=== PATIENT | male | born 1955 | race Caucasian/White ===

== ENCOUNTER 2024-09-20 14:30 | Outpatient (AMB) | payer MEDICARE, OTHER, SELFPAY ==
--- NOTE | 2024-09-20 14:32 | MHC.OFFWIV ---
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, unable to sleep, after COVID + Patient Tobacco Use Status: Never used Tobacco Accompanied by: Self / Same As Patient Allergies shrimp Allergy (Unknown, Verified 09/20/24 14:33) SWELLING Medication List - Last Reconciled 09/20/24 by Sayra Mclaughlin, DERMATOLOGIST MANAGING PARTNER- atorvastatin 10 mg PO DAILY fluticasone propionate 50 mcg/actuation sprays intranasal montelukast 10 mg PO DAILY Do you need a note to return to daycare/school/sports/work: Yes HPI HPI Comments History of Present Illness Details History - The patient is a 68-year-old male presenting with Anxiety and Insomnia - He has experienced worsening anxiety since will COVID-19, characterized by racing thoughts and difficulty managing his mental state, which is most prevalent at night. - Anxiety began during his 30s after a false positive blood pressure reading, which led to repeated unnecessary medical checks. - He has utilized THC gummies for anxiety alleviation but finds them only temporarily effective. - [id number], the patient's anxiety is compounded by physical symptoms like shortness of breath during activities, which he associates with his mental state. - He reports insomnia tied to his anxieties about going to bed, failed sleep apnea attempts in the past, and nasal obstruction stemming from a past septum operation. - Experiencing agitative states but relieved marginally by daytime activity; nonetheless, unable to remain constantly busy. - The patient?s wheeziness, mostly following nighttime rest, is sometimes treatable with self-medicated dkae-oqi-nfhsrbw remedies. - An increased sense of breathlessness correlates with heightened diurnal anxiety, while mourning recent personal losses may exacerbate these emotional disorders. Physical Exam General: Awake, alert. No apparent distress Eyes: Sclera and conjunctiva clear bilaterally Cardiovascular: Regular rate and rhythm Respiratory: Clear to auscultation bilaterally. Neuro: Nonfocal Psych: Pleasant, cooperative, present Results Discussion Notes I discussed with the patient the management of his anxiety and insomnia, emphasizing the importance of achieving restorative sleep for recovery and health maintenance. I recommended hydroxyzine, which offers potential benefit for both anxiety and sleep disturbances. I detailed that hydroxyzine, at a 25 mg dosage, can be tailored to his needs: 1/2 to 2 tablets as needed, up to three times daily. Emphasis was given to start with a lower dose at bedtime to monitor its effect and to avoid daytime sedation, aiming to alleviate system overactivity. Given the patient's dislike of being dismissed in past healthcare experiences, I reassured him that continued support and follow-up would be available, advising a re-evaluation in a week to adjust treatment as needed. Furthermore, I provided reassurance about his normal heart and lung assessments during the examination. Patient Instructions - Start hydroxyzine as directed: 1/2 to 2 tablets up to three times a day, being cautious of its sedative effects, especially during daytime activities. - Consider elevating your head while sleeping and using a cool-mist humidifier to potentially help with nasal congestion. - Continue using Mucinex as needed for wheezing and post-nasal drip. - Follow up in one week to assess the effectiveness of treatment and make necessary adjustments. - Notify us if symptoms significantly worsen or for any new concerns. Consent Patient was informed and verbally consented to the use of an ambient scribe for clinic note documentation during this visit. [facility] Social History Patient Tobacco Use Status: Never used Tobacco Physical Exam Vital Signs: Last Vital Signs Temp 98.1 F 09/20/24 14:34 Pulse 90 09/20/24 14:34 BP 130/80 09/20/24 14:34 Pulse Ox 97 09/20/24 14:34 Oxygen Delivery Method Room Air 09/20/24 14:34 BMI result Body Mass Index 33.5 Assessment & Plan Assessment & Plan (1) Anxiety about health: Code(s): R45.89 - Other symptoms and signs involving emotional state (2) History of COVID-19: Code(s): Z86.16 - Personal history of COVID-19 Plan . Medications: New hydroxyzine HCl Take 1-2 tabs three times per day as needed for anxiety or insomnia 25 mg PO TID PRN 60 tabs 0RF insomnia or anxiety NS Patient Instructions: - Start hydroxyzine as directed: 1/2 to 2 tablets up to three times a day, being cautious of its sedative effects, especially during daytime activities. - Consider elevating your head while sleeping and using a cool-mist humidifier to potentially help with congestion, cough and wheezing - Continue using Mucinex as needed for wheezing and post-nasal drip. - Follow up in one week to assess the effectiveness of treatment and make necessary adjustments. - Notify us if symptoms significantly worsen or for any new concerns. Coding Level of Care Code Est Pt Level 3 (50858) Diagnoses Anxiety about health R45.89 History of COVID-19 Z86.16
--- OUTSIDE RECORDS SUMMARY | 2024-09-20 14:32 | XMS_ITS | Clinical Summary ---
Author Organization [facility] [address] [place] [address] Address [address] [facility] [place] Rodriges [address] Phone Care Team Providers Care Finisher Cold Rolling Name Role Phone Lashell Alfaro MD Primary Care Provider [phone] Allergies Active Allergy Reactions Criticality Noted Date Comments Dog Dander 09/30/2021 Grass Pollen 09/30/2021 House Dust Mite 09/30/2021 Mold 09/30/2021 Pollen Extracts 09/30/2021 Shellfish Derived Shortness of breath,Wheezing High 04/18/2005 Medications montelukast (SINGULAIR) 10 mg tablet TAKE 1 TABLET BY MOUTH EVERYDAY AT BEDTIME 90 tablet 1 4 Active multivitamin/ir on/folic acid (CENTRUM ORAL) 1 tab daily Act keyana cetirizine HCl (ZYRTEC ORAL) Take by mouth. A ctive olive oil external oil 1 tablespoon nightly 2 Active omega 7-djj-wgn-fish oil 360 mg-108 mg- 180 mg-1,200 mg capsule Take 3 capsules by mouth 1 (one) time each day. Active omeprazole (PriLOSEC) [address] capsule Take 1 capsule (20 mg total) by mouth 1 (one) time each day. Active aspirin 81 mg EC tablet 1 TABLET DAILY Activ e TURMERIC ORAL Take by mouth 1 (one) time each day. Active atorvastatin (LIPITOR) 10 mg tablet TAKE 1 TABLET BY MOUTH EVERY DAY 90 tablet 2 4 Active fluticasone propionate (FLONASE) 50 mcg/actuation nasal spray SPRAY 2 SPRAYS BY NASAL ROUTE DAILY 48 mL 1 5 Active Active Problems Problem Noted Date Diagnosed Date Hydronephrosis, right 10/24/2015 Elevated blood pressure reading 10/22/2015 Assessment & Plan (07/23/2024 12:30 PM EST): Orders: Comprehensive metabolic panel; Future Nephrolithiasis 10/22/2015 Overview (05/19/2024): Follows with urology, Assessment & Plan (07/23/2024 12:30 PM EST): Ankle injury 06/29/2015 MORENO (obstructive sleep apnea) 10/11/2011 Overview (05/19/2024): Pt prefers to use adjustable bed, helps. Assessment & Plan (07/23/2024 12:30 PM EST): Orders: Ambulatory referral to ENT; Future GERD (gastroesophageal reflux disease) 1 Obesity 03/21/2011 Assessment & Plan (07/23/2024 12:30 PM EST): Orders: Comprehensive metabolic panel; Future Asthma 10/11/2009 Hyperlipidemia 06/19/2009 Assessment & Plan (07/23/2024 12:30 PM EST): Orders: Lipid panel with reflex to direct LDL; Future Comprehensive metabolic panel; Future Urticaria 06/17/2009 Meniere's disease 06/05/2008 Hearing loss 05/15/2005 Overview (05/19/2024): Dr Anthony CORTEZ update Encounters Date Type Department Care Team Description 09/11/2024 3:30 PM EDT Office Visit Adult Medicine [address] [address] Lashell Alfaro MD COVID-19 virus infection (Primary Dx); Cough, unspecified type 09/11/2024 Telephone Adult Medicine West [address] [address] Lashell Alfaro MD Covid 08/20/2024 Telephone Adult Medicine [address] [address] Lashell Alfaro MD Cough; Generalized Body Aches; Headache 07/23/2024 11:15 AM EST Office Visit Adult Medicine [address] [address] Lashell Alfaro MD Viral upper respiratory tract infection (Primary Dx); Allergic rhinitis, unspecified seasonality, unspecified trigger; Elevated blood pressure reading; MORENO (obstructive sleep apnea); Class 2 severe obesity due to excess calories with serious comorbidity in adult, unspecified BMI (CMS/HCC); Nephrolithiasis; Hyperlipidemia, unspecified hyperlipidemia type; Routine general medical examination at a [facility] 06/25/2024 Lab Requisition [facility] - Main Lab [address] [place] [phone] Pat Mahoney MD Benign prostatic hyperplasia with lower urinary tract symptoms from Last 3 Months Immunizations Name Administration Dates Next Due H1N1 Inj Preservative Free 06/17/2009 Influenza Quadravalent, MDCK , 0.5ml, preservative free (Flucelvax) 6mo and older 03/22/2019,03/21/2018 Influenza Quadravalent, MDCK , 0.5ml, with preservative (Flucelvax) 6mo and older 03/15/2021,03/07/2020 Influenza trivalent, 0.5mL ( Fluad) 65yo and older 03/03/2023,04/07/2022 Influenza trivalent, 0.5mL, preservative free (Fluarix; FluLaval; Fluzone) ages 6mo and older (Afluria) 3 years and older 03/22/2019,03/10/2014,02/22/2012,06/05,03/19/2007 Influenza trivalent, with pr eservative (Fluzone; Afluria) 6mo and older 03/27/2017,04/07/2016,04/15/2013,05/22,03/21/2011,06/17/2009 Influenza, Unspecified 03/07/2020,03/21/2018, Pfizer (ages 12 & older) Biv alent, COVID-19 11/24/2022,04/06/2022 Pfizer SARS-CoV-2 COVID-19, mRNA, LNP-S, preservative free 09/22/2021,03/29/2021 Pneumococcal conjugate 20 va lent (Prevnar 20, PCV 20) 2mo and older 07/24/2023 Pneumococcal polysaccharide 23 valent (Pneumovax 23) 2yo and older 10/13/2013 Respiratory syncytial virus (RSV), unspecified 03/07/2023 Td Tetanus diptheria (Tdvax) 7yo and older 05/15/2005 Tdap Tetanus diptheria acell ular pertussis (Boostrix; Adacel) 7yo and older 06/17/2024,08/13/2012 Zoster Live 03/21/2018,01/17/2018 Zoster recombinant (Shingrix ) 19yo and older 03/21/2018,01/17/2018 Surgical History Surgery Date Site/Laterality Comments COLONOSCOPY 01/14/2008 PROCEDURE: HISTORICAL COLONOSCOPY; COMMENT: diverticulosis OTHER SURGICAL HISTORY PROCEDURE: ---- OTHER ----; COMMENT: deviated septum, vocal cord polyps OTHER SURGICAL HISTORY PROCEDURE: ---- OTHER ----; COMMENT: fx collorbone,. finger surgery ORTHOPEDIC SURGERY Right PROCEDURE: HISTORICAL ORTHOPEDIC SURGERY; COMMENT: Right foot compound fracture Medical History Medical History Date Comments Unspecified hearing loss 05/15/2005 DX:Unsp ecified hearing loss Meniere's disease 06/05/2008 DX:Meniere's d isease Urticaria 06/17/2009 DX:Urticaria MORENO (obstructive sleep apnea) 10/11/2011 DX :MORENO (obstructive sleep apnea) Hyperlipidemia 06/19/2009 DX:Hyperlipidemi a Hydronephrosis DX:Hydronephrosi s Obesity DX:Obesity Elevated blood pressure DX:[place] blood pressure Nephrolithiasis 10/22/2015 DX:Nephrolithias is; COMMENT: Follows with urology, Family history of pancreatic cancer 11/04/2018 DX:Family history of pancreatic cancer Family History Medical History Relation Name Comments Other: pancreatic cancer, stage 3/4 at age 63 Brother 1 Other cancer Brother 2 skin bcc Heart attack Father age 69 Arthritis Mother Heart failure Mother Arthritis Sister 1 Relation Name Status Comments Brother 1 Alive Brother 2 Father (Age 69) mi, htn, c abg age 63 Mother (Age 77) hip fx, ra Sister 1 Sister 2 Alive ra Sister 3 Alive Sister 4 Alive Social History Tobacco Use Types Packs/Day Years Used Date Smoking Tobacco: Former Cigarettes Q uit: 06/18/1972 Smokeless Tobacco: Never Tobacco Cessation:Counseling Given: Not Answered Alcohol Use Standard Drinks/Week Comments Yes 8.3 (1 standard drink = 0.6 oz p ure alcohol) Sex and Gender Information Value Date Recorded Sex Assigned at Not on file Legal Sex Male 9:10 PM EST Gender Identity Not on file Sexual Orientation Not on file Obstetrics History Last Filed Vital Signs Vital Sign Reading Time Taken Comments Blood Pressure 128/78 09/11/2024 3:49 PM EDT Pulse 72 09/11/2024 3:49 PM EDT Temperature 36.6 ??C (97.9 ??F) 09/11/2024 3:49 PM ED T Respiratory Rate 22 09/11/2024 3:49 PM EDT Oxygen Saturation 96% 09/11/2024 3:49 PM EDT Inhaled Oxygen Concentration - - Weight 111 kg (244 lb) 09/11/2024 3:49 PM EDT Height 180.3 cm (5' 11 ) 09/11/2024 3:49 PM EDT Body Mass Index 34.03 09/11/2024 3:49 PM EDT Plan of Treatment Upcoming Encounters Date Type Department Care Team (Late st Contact Info) Description 02/04/2025 8:45 AM EDT Office Visit Adult Medicine [address] [phone] Lashell Alfaro MD [address] [place] [address] Health Maintenance Due Date Last Done Comments RSV Immunization Adult Patients (1 - Risk 60-74 years 1-dose series) 2016 03/07/2023 Zoster Vaccines (3 of 3) 05/16/2018 018, 03/21/2018, 01/17/2018, Additional history exists Social Influencers of Health Screening 05/27/2022 Depression Screening 07/24/2024 07/24/2023 Falls Risk Assessment 07/23/2025 07/23/2024, 024 Medicare Annual Wellness Visit 07/23/2025 07/23/2024 Cholesterol Screening (Lipid Panel) 03/23/2028 03/23/2023 Colorectal Cancer Screening: Colonoscopy 04/12/2031 04/12/2021 DTaP,Tdap,and Td Vaccines (4 - Td or Tdap) 06/17/2034 06/17/2024, 08/13/2012, 05/15/2005 Hepatitis C Screening Completed 10/13/2013 RSV Immunization Patients Under 20 months Aged Out 03/07/2023 No longer eligible based on patient's age to complete this topic Pneumococcal Vaccine: 50+ Years Completed 07/24/2023, 10/13/2013 Abdominal Aortic Aneurysm (AAA) Screen Completed 12/03/2023 COVID-19 Vaccine Completed 03/05/2024, 08/2023, 03/27/2023, Additional history exists Influenza Vaccine Completed 03/21/2024, , 04/07/2022, Additional history exists HIB Vaccines Aged Out No longer eligi ble based on patient's age to complete this topic HPV Vaccines Aged Out No longer eligi ble based on patient's age to complete this topic Hepatitis A Vaccines Aged Out No long er eligible based on patient's age to complete this topic Hepatitis B Vaccines Aged Out No long er eligible based on patient's age to complete this topic IPV Vaccines Aged Out No longer eligi ble based on patient's age to complete this topic MMR Vaccines Aged Out No longer eligi ble based on patient's age to complete this topic Meningococcal ACWY Vaccine Aged Out N o longer eligible based on patient's age to complete this topic Meningococcal B Vacine Aged Out No lo nger eligible based on patient's age to complete this topic Varicella Vaccines Aged Out No longer eligible based on patient's age to complete this topic Procedures Procedure Name Priority Date/Time Associated Diagnosis Comments PROSTATE SPECIFIC ANTIGEN DIAGNOSTIC Routine 06/25/2024 10:26 AM EST Benign prostatic hyperplasia with lower urinary tract symptoms HM ABDOMINAL AORTIC ANEURYSM SCRREN Routine 12/03/2023 DEPRESSION SCREENING Routine 07/24/2023 FALLS RISK ASSESSMENT Routine 07/24/2023 LIPID PANEL Routine 03/23/2023 COLONOSCOPY Routine 04/12/2021 HEPATITIS C SCREENING Routine 10/13/2013 from Last 3 Months or Most Recently Relevant to Health Maintenance Results * Prostate specific antigen diagnostic (06/25/2024 10:26 AM EST) PSA 1.73 0.00 - 4.00 ng/mL LAB CHEMISTRY METHOD 06/25/2024 6:41 PM EST [facility] Blood Venous blood specimen / Unknown 06/25/2024 10:26 AM EST 06/25/2024 6:05 PM EST Narrative [facility] - 06/25/2024 6:41 PM EST The Siemens Advia Centaur Chemiluminescent Immunoassay is used. Results obtained with different assay methods or kits cannot be used interchangeably. Results cannot be interpreted as absolute evidence of the presence or absence of malignant disease. Pat Mahoney MD LAB BLOOD ORDERABLES Fin al Result [facility] [address] [place] [address], * Abdominal Aortic Aneurysm Screen (12/03/2023) Abdominal Aortic Aneurysm (AAA) Screening abstracted Anatomical Region Laterality Modality Other Historical Provider HEALTH MAINTENANCE Final Result * Falls Risk Assessment (07/24/2023) Falls Risk Assessment abstracted Historical Provider HEALTH MAINTENANCE Final Result * Depression Screening (07/24/2023) [facility] Depression Screening abstracted [facility] Provider HEALTH MAINTENANCE Final Result * (ABNORMAL) Lipid panel (03/23/2023) [facility] LDL/HDL Ratio 4 0 - 4 Triglycerides 89 0 - 150 mg/dL Cholesterol 146 0 - 200 mg/dL HDL 38(A) >=40 mg/dL LDL Cholesterol 91 0 - 100 mg/dL Blood Venous blood specimen / Unknown [facility] Provider LAB BLOOD ORDERABLES Angelique l Result * Colonoscopy (04/12/2021) [facility] Colonoscopy no interpretation , abstracted Anatomical Region Laterality Modality Other [facility] Provider HEALTH MAINTENANCE Final Result * Hepatitis C Screening (10/13/2013) [facility] Hepatitis C Screening abstracted [facility] Provider HEALTH MAINTENANCE Final Result from Last 3 Months or Most Recently Relevant to Health Maintenance Insurance MEDICARE [facility] [address] [place] [address] Care Teams Finisher Cold Rolling Relationship Specialty Start Date End Date Lashell Alfaro MD [address] [place] [id number] PCP - General Internal Medicine 06/18/20
--- OUTSIDE RECORDS SUMMARY | 2024-09-20 14:32 | XMS_ITS | Encounter Summary ---
Author Organization [facility] Address [address] [place] [address] Care Team Providers Care Nurse Liaison Name Role Phone Lashell Alfaro MD Primary Care Provider [phone] Encounter Details Date Type Department Care Team (Late Contact Info) Description 06/25/2024 Lab Requisition [facility] - Main Lab [address] [facility] [place] [address] Pat Mahoney MD [address] [facility] [address] [place] [address] Benign prostatic hyperplasia with lower urinary tract symptoms Social History Tobacco Use Types Packs/Day Years Used Date Smoking Tobacco: Former Cigarettes Q uit: 06/18/1972 Smokeless Tobacco: Never Alcohol Use Standard Drinks/Week Comments Yes 8.3 (1 standard drink = 0.6 oz p ure alcohol) Sex and Gender Information Value Date Recorded Sex Assigned at Not on file Legal Sex Male 9:10 PM EST Gender Identity Not on file Sexual Orientation Not on file documented as of this encounter Plan of Treatment Upcoming Encounters Date Type Department Care Team (Late Contact Info) Description 02/04/2025 8:45 AM EDT Office Visit Adult Medicine [address] [phone] Lashell Alfaro MD [address] [place] [address] documented as of this encounter Procedures Procedure Name Priority Date/Time Associated Diagnosis Comments PROSTATE SPECIFIC ANTIGEN DIAGNOSTIC Routine 06/25/2024 10:26 AM EST Benign prostatic hyperplasia with lower urinary tract symptoms documented in this encounter Results * Prostate specific antigen diagnostic (06/25/2024 10:26 AM EST) PSA 1.73 0.00 - 4.00 ng/mL LAB CHEMISTRY METHOD 06/25/2024 6:41 PM EST [facility] Blood Venous blood specimen / Unknown 06/25/2024 10:26 AM EST 06/25/2024 6:05 PM EST Narrative [facility] - 06/25/2024 6:41 PM EST The Siemens Advia Genomedaur Chemiluminescent Immunoassay is used. Results obtained with different assay methods or kits cannot be used interchangeably. Results cannot be interpreted as absolute evidence of the presence or absence of malignant disease. us Pat Mahoney MD LAB BLOOD ORDERABLES Fin al Result [facility] [address] [place] [address], documented in this encounter Visit Diagnoses Diagnosis Benign prostatic hyperplasia with lower urinary tract symptoms documented in this encounter Care Teams Nurse Liaison Relationship Specialty Start Date End Date Lashell Alfaro MD [address] [place] [address] PCP - General Internal Medicine 06/18/20 documented as of this encounter
--- OUTSIDE RECORDS SUMMARY | 2024-09-20 14:32 | XMS_ITS | Clinical Summary ---
Author Organization [facility] Address [address] [place] [address] Care Team Providers Care Oceanic Sciences Professor Name Role Phone Lashell Alfaro MD Primary Care Provider [phone] Social History Tobacco Use Types Packs/Day Years Used Date Smoking Tobacco: Never Assessed Sex and Gender Information Value Date Recorded Sex Assigned at Not on file Gender Identity Not on file Sexual Orientation Not on file Job Start Date Occupation Industry Not on file Not on file Not on file Plan of Treatment Health Maintenance Due Date Last Done Comments Hepatitis C Screening 1955 COVID-19 Vaccine (#1) 06/22/1957 Depression Screening 1968 Preventative Health Evaluation 1974 DTap / Tdap / Td (1 - Tdap) 12/21/1975 Colon Cancer Screening (Colonoscopy) 2001 Shingrix-Zoster Vaccine (1 of 2) 2006 Fall Risk Assessment 2021 Pneumococcal Vaccine (1 of 1 - PCV) 2021 Influenza Vaccine (#1) 2024 RSV Adult > 60+ Yrs or Pregn ant (1 - 1-dose 75+ series) 12/21/2031 Hepatitis B Vaccines Aged Out No long er eligible based on patient's age to complete this topic RSV Ped < 20 months Aged Out No longe r eligible based on patient's age to complete this topic Care Teams Oceanic Sciences Professor Relationship Specialty Start Date End Date Lashell Alfaro MD PCP - General Internal Medicine 06/18/20
--- OUTSIDE RECORDS SUMMARY | 2024-09-20 14:32 | XMS_ITS | Encounter Summary ---
Author Organization [facility] Address [address] [place] [address] Care Team Providers Care Package Sorter Name Role Phone Lashell Alfaro MD Primary Care Provider [phone] Reason for Visit * Reason Onset Date Comments Cough 05/19/2024 Encounter Details Date Type Department Care Team (Late st Contact Info) Description 05/19/2024 Nurse Triage Adult Medicine [facility] [address] [place] [address] Lashell Alfaro MD [address] [place] [address] Cough Social History Tobacco Use Types Packs/Day Years [...] on file documented as of this encounter Progress Notes * Zoya Vicente RN - 05/20/2024 12:26 PM EST Answer Assessment - Initial Assessment Questions 1. ONSET: When did the cough begin? A week 2. SEVERITY: How bad is the cough today? Persistent 3. SPUTUM: Describe the color of your sputum (e.g., none, dry cough; clear, white, yellow, green) Thick green 4. HEMOPTYSIS: Are you coughing up any blood? If Yes, ask: How much? (e.g., flecks, streaks, tablespoons, etc.) none 5. DIFFICULTY BREATHING: Are you having difficulty breathing? If Yes, ask: How bad is it? (e.g., mild, moderate, severe) - MILD: No SOB at rest, mild SOB with walking, speaks normally in sentences, can lie down, no retractions, pulse < 100. - MODERATE: SOB at rest, SOB with minimal exertion and prefers to sit, cannot lie down flat, speaksin phrases, mild retractions, audible wheezing, pulse 100-120. - SEVERE: Very SOB at rest, speaks in single words, struggling to breathe, sitting hunched forward,retractions, pulse > 120. Mild 6. FEVER: Do you have a fever? If Yes, ask: What is your temperature, how was it measured, and when did it start? none 7. CARDIAC HISTORY: Do you have any history of heart disease? (e.g., heart attack, congestive heart failure) none 8. LUNG HISTORY: Do you have any history of lung disease? (e.g., pulmonary embolus, asthma, emphysema) COPD take Flonase and Singulair 9. PE RISK FACTORS: Do you have a history of blood clots? (or: recent major surgery, recent prolonged travel, bedridden) none 10. OTHER SYMPTOMS: Do you have any other symptoms? (e.g., runny nose, wheezing, chest pain) C/O chest wall pain with deep breath and cough, denies SOB, able to speak in full sentences and hasno audible wheezing, using inhaler as directed with relief, cough is productive for thick Sputum, denies fever (has not taken temp) able to take PO with no difficulty, denies N/V/D, Covid negative 11. : Is there any chance you are ? When was your last menstrual period? N/A 12. TRAVEL: Have you traveled out of the country in the last month? (e.g., travel history, exposures) 1 mo ago Protocols used: Cough - Acute Jazhtjbzly-L-LQ * Raisa Mccallum - 05/20/2024 11:50 AM EST Pt called back. Pls return call. [phone] * PETERSON El katheryn - 05/19/2024 2:44 PM EST Patient call requires triage: Symptoms patient is presenting: coughing, a lot of mucus, light headed, pt can't sleep, stuffy nosept did take a covid test and it was negitive How long has patient had these symptoms?: just over a week For ALL patients calling to schedule any appointment (routine, sick visit, follow up, consult, etc.) in the outpatient setting please ask the following questions: Do you have fever of higher than 101, sore throat with difficulty swallowing or severe shortness ofbreath? Yes swallowing and shortness of breath If YES to any of these above symptoms, send a message to triage and do not book. Red dot. If no, an audio or video visit should be booked. Have you had close contact with someone with Coronavirus in the last 14 days? no Have you traveled abroad? no Have you traveled recently to another state outside of [place], [place], [place], [place], [place], [place], [place]? no o If yes, did you quarantine for 14 days or have a negative covid test? no If yes to any of the above, patient is not to be scheduled in office until after 14 day quarantine or negative covid test. If pain or injury related was it due to an accident at work or from a motor vehicle accident? If yes, date of accident/Injury: No If yes, gather 3rd republican insurance information Third Green Party Information: not applicable PCP: Lashell Alfaro MD Payor: / No coverage found. documented in this encounter Plan of Treatment Upcoming Encounters Date Type Department Care Team (Late st Contact Info) Description 02/04/2025 8:45 AM EDT Office Visit Adult Medicine [address] [phone] Lashell Alfaro MD [address] [place] [id number] documented as of this encounter Visit Diagnoses Not on filedocumented in this encounter Care Teams Package Sorter Relationship Specialty Start Date End Date Lashell Alfaro MD [address] [place] [address] PCP - General Internal Medicine 06/18/20 documented as of this encounter
[2024-09-20 14:34] VITALS: BP 130/80; PULSE 90; TEMP 36.7; O2SAT 97; BMI 33.5
== END 2024-09-20 14:58 | disposition home or self-care (01) ==
LOC: HO.HMCWIC 14:30
PROVIDERS: PCP Internal Medicine; Visit Provider Nurse Practitioner Family
DX: R45.89 Other symptoms and signs involving emotional state (principal); Z86.16 Personal history of COVID-19

== ENCOUNTER → 2024-09-20 14:30 | Outpatient (BNVA) | payer MEDICARE, OTHER, SELFPAY | PROVIDERS: PCP Internal Medicine; Visit Provider Nurse Practitioner Family | DX: R45.89 Other symptoms and signs involving emotional state (principal); Z86.16 Personal history of COVID-19 | CPT/HCPCS: 99212 ==

== ENCOUNTER 2024-09-30 13:38 | Outpatient (AMB) | payer MEDICARE, OTHER, SELFPAY ==
[2024-09-30 13:43] VITALS: BP 140/90; PULSE 78; O2SAT 98
--- NOTE | 2024-09-30 13:43 | AM.OFFWIN_ITS ---
Intake Vital Signs 09/30/24 13:43 Weight 241 lb BP 140/90 H Blood Pressure Location Rt brachial Position Sitting Pulse 78 Pulse Source Pulse Oximeter Pulse Oximetry (%) 98 Oxygen Delivery Method Room Air Intake Visit Reasons: EP Anxiety Intake Note: Patient here for anxiety, loosing sleep Patient Tobacco Use Status: Never used Tobacco Allergies shrimp Allergy (Unknown, Verified 09/30/24 13:44) SWELLING Do you need a note to return to daycare/school/sports/work: No HPI HPI Comments History of Present Illness Details This is a 68-year-old male with a past medical history of seasonal allergies and asthma presenting for re-evaluation of his anxiety. Patient states he was diagnosed with COVID in August 2024 and started to have racing thoughts and anxiety at that time. Patient was seen in the walk-in on September 20 and prescribed hydroxyzine which he states has been very helpful for his anxiety. Patient's primary care provider is through [facility] and the patient is concerned that his PCP has not been taking his concerns seriously, which is why he returns to the walk.in. Patient has no physical complaints at this time and denies any suicidality or homicidality. PFSH Social History Patient Tobacco Use Status: Never used Tobacco Review of Systems Const All systems reviewed & are unremarkable except as noted in HPI and below Reports no additional complaints and Reports other (anxious) Eyes Reports no additional complaints ENT Reports no additional complaints Card Reports no additional complaints Resp Reports no additional complaints GI Reports no additional complaints Reports no additional complaints Musc Reports no additional complaints Skin/Breast Reports system reviewed and no additional complaints, except as documented Neuro Reports no additional complaints and Denies memory loss Psych Reports anxiety, Denies memory loss, Denies panic attacks, Denies homicidal ideation and Reports other ( racing thoughts ) Endo Reports no additional complaints Deejay/Lymph Reports no additional complaints Aller/Immun Reports no additional complaints Physical Exam Vital Signs: Last Vital Signs Pulse 78 09/30/24 13:43 BP 140/90 H 09/30/24 13:43 Pulse Ox 98 09/30/24 13:43 Oxygen Delivery Method Room Air 09/30/24 13:43 Const General: cooperative, healthy appearing, comfortable, no acute distress, well developed, alert and awake Nutritional Appearance: well nourished Orientation/consciousness: patient oriented x3 Limitations: no limitations Resp Effort & Inspection: normal respiratory effort and able to speak in complete sentences Auscultation: clear to auscultation bilaterally Cardio Rate: regular rate Rhythm: regular rhythm Neuro General: patient oriented x3 Psych Appearance: grossly normal Mental Status: mental status grossly normal Speech and movement: Normal speech and movement present Affect: normal affect Attitude: cooperative Thought process: Normal thought process present Thought content: Normal thought content present, suicidality and no homicidality Insight: Good insight present (Psych) Judgement: Good judgement present (Psych) Assessment & Plan Assessment & Plan (1) Anxiety about health: Comment: We have discussed the nature of anti.anxiety medications as related to joint terminal attack controller care. Hydroxyzine will be re.prescribed for a quantity of #20 tabs. Patient has met with the community navigator and has received a referral for the [facility] Walk.In to pursue therapy and/or medication management. He is encouraged to follow up with his primary care provider as an outpatient for ongoing management. Patient is aware that he may not continue to return to the walk-in for ongoing hydroxyzine prescriptions. Code(s): R45.89 - Other symptoms and signs involving emotional state Plan: Hydroxyzine will be represcribed and the patient will be referred to the [facility] walk-in. Medications: New hydroxyzine HCl 25 mg PO QID PRN 20 tabs 0RF anxiety Coding Level of Care Code Est Pt Level 3 (22681) Diagnoses Anxiety about health R45.89 Time Spent (min) 30
--- OUTSIDE RECORDS SUMMARY | 2024-09-30 16:43 | XMS_ITS | Clinical Summary ---
Author Organization [facility] Address [address] [place] [address] Care Team Providers Care All Around Gear Machine Operator Name Role Phone Lashell Alfaro MD Primary Care Provider [phone] Social History Tobacco Use Types Packs/Day Years [...] age to complete this topic Care Teams All Around Gear Machine Operator Relationship Specialty Start Date End Date Lashell Alfaro MD PCP - General Internal Medicine 06/18/20
--- OUTSIDE RECORDS SUMMARY | 2024-09-30 16:43 | XMS_ITS | Encounter Summary ---
Author Organization [facility] Address [address] [place] [address] Care Team Providers Care Hat Marker Name Role Phone Lashell Alfaro MD Primary Care Provider [phone] Reason for Visit * Reason Onset Date Comments Cough 05/19/2024 Encounter Details Date Type Department Care Team (Late st Contact Info) Description 05/19/2024 Nurse Triage Adult Medicine [facility] [address] [place] [address] Lashell Alfaro MD [address] [place] [address] Cough Social History Tobacco Use Types Packs/Day [...] mo ago Protocols used: Cough - Acute [id number]-C-BU * Raisa Mccallum - 05/20/2024 11:50 AM EST Pt called back. Pls return call. [phone] * PETERSON Deshawn campa - 05/19/2024 2:44 PM EST Patient call [...] traveled recently to another state outside of [place], [place], [place], [place], [place], [place], [place]? no o If yes, did you quarantine [...] of accident/Injury: No If yes, gather 3rd democrat insurance information [employer] Party Information: not applicable PCP: Lashell Alfaro MD Payor: / No coverage found. documented in this encounter Plan of Treatment Upcoming Encounters Date Type Department Care Team (Late st Contact Info) Description 10/07/2024 8:00 AM EDT Office Visit Adult Medicine [address] [phone] Maverick Fleming PA [address] [place] [address] 02/04/2025 8:45 AM EDT Office Visit Adult Medicine [facility] [address] [place] [address] Lashell Alfaro MD [address] [place], [place] documented as of this encounter Visit Diagnoses Not on filedocumented in this encounter Care Teams Hat Marker Relationship Specialty Start Date End Date Lashell Alfaro MD [address] [place], [place] PCP - General Internal Medicine 06/18/20 documented as of this encounter
--- OUTSIDE RECORDS SUMMARY | 2024-09-30 16:43 | XMS_ITS | Clinical Summary ---
Author Organization [facility] [address] [place] [address] Address [address] [facility] [place] Rodriges [address] Phone Care Team Providers Care Customer Service Assistant Name Role Phone Lashell Alafro MD Primary Care Provider [phone] Allergies Active Allergy Reactions Criticality Noted Date [...] oil 1 tablespoon nightly 2 Active omega 2-zug-aci-fish oil 360 mg-108 mg- 180 mg-1,200 mg [...] 3:30 PM EDT Office Visit Adult Medicine [address] [phone] Lashell Alfaro MD COVID-19 virus infection (Primary Dx); Cough, unspecified type 09/11/2024 Telephone Adult Medicine [place] [address] [phone] Lashell Alfaro MD Covid 08/20/2024 Telephone Adult Medicine [address] [phone] Lashell Alfaro MD Cough; Generalized Body Aches; Headache 07/23/2024 11:15 AM EST Office Visit Adult Medicine [address] [phone] Lashell Alfaro MD Viral upper respiratory tract infection (Primary Dx); Allergic rhinitis, unspecified seasonality, unspecified trigger; Elevated blood pressure reading; MORENO (obstructive sleep apnea); Class 2 severe obesity due to excess calories with serious comorbidity in adult, unspecified BMI (CMS/[facility] V24, [facility] V28); Nephrolithiasis; Hyperlipidemia, unspecified hyperlipidemia type; Routine general medical examination at a health care facility from Last 3 Months Immunizations Name Administration [...] DX:Hydronephrosi s Obesity DX:Obesity Elevated blood pressure DX:Bowie cristiana blood pressure Nephrolithiasis 10/22/2015 DX:Nephrolithias is; [...] Description 10/07/2024 8:00 AM EDT Office Visit [address] [phone] Maverick Fleming PA [address] [place], [place] 02/04/2025 8:45 AM EDT Office Visit [address] [phone] Lashell Alfaro MD [address] [place], [place] Health Maintenance Due Date Last Done Comments RSV Immunization Adult Patients (1 - Risk 60-74 years 1-dose series) 2016 03/07/2023 Zoster Vaccines (3 of 3) 05/16/2018 018, 03/21/2018, 01/17/2018, Additional history exists Social Influencers of Health Screening 05/27/2022 Depression Screening 07/24/2024 07/24/2023 COVID-19 Vaccine ( season) 2024 03/05/2024, 11/19/2023, 03/27/2023, Additional history exists Falls Risk Assessment 07/23/2025 07/23/2024, 024 Medicare [...] Abdominal Aortic Aneurysm (AAA) Screen Completed 12/03/2023 Influenza Vaccine Completed 03/21/2024, , 04/07/2022, Additional [...] age to complete this topic Meningococcal B Vaccine Aged Out No l onger eligible based on patient's age to complete this topic Varicella Vaccines Aged Out No longer eligible based on patient's age to complete this topic Procedures Procedure Name Priority Date/Time Associated Diagnosis Comments ABDOMINAL AORTIC ANEURYSM SCRREN Routine 12/03/2023 DEPRESSION SCREENING Routine 07/24/2023 FALLS RISK ASSESSMENT Routine 07/24/2023 LIPID PANEL Routine 03/23/2023 COLONOSCOPY Routine 04/12/2021 HEPATITIS C SCREENING Routine 10/13/2013 from Last 3 Months or Most Recently Relevant to Health Maintenance Results * Abdominal Aortic Aneurysm Screen (12/03/2023) [facility] Abdominal Aortic Aneurysm (AAA) Screening abstracted Anatomical Region Laterality Modality Other [facility] HEALTH MAINTENANCE Final Result * Falls Risk Assessment (07/24/2023) [facility] Falls Risk Assessment abstracted [facility] HEALTH MAINTENANCE Final Result * Depression Screening (07/24/2023) [facility] Depression Screening abstracted [facility] HEALTH MAINTENANCE Final Result * (ABNORMAL) Lipid panel (03/23/2023) [facility] LDL/HDL Ratio 4 0 - 4 Triglycerides 89 0 - 150 mg/dL Cholesterol 146 0 - 200 mg/dL HDL 38(A) >=40 mg/dL LDL Cholesterol 91 0 - 100 mg/dL Blood Venous blood specimen / Unknown [facility] Provider LAB BLOOD ORDERABLES Angelique l Result * Colonoscopy (04/12/2021) [facility] Colonoscopy no interpretation , abstracted Anatomical Region Laterality Modality Other [facility] HEALTH MAINTENANCE Final Result * Hepatitis C Screening (10/13/2013) [facility] Hepatitis C Screening abstracted us Historical Provider HEALTH MAINTENANCE Final Result from Last 3 Months or Most Recently Relevant to Health Maintenance Insurance MEDICARE [facility] Care Teams Customer Service Assistant Relationship Specialty Start Date End Date Lashell Alfaro MD [address] [place] [address] PCP - General Internal Medicine 06/18/20
--- OUTSIDE RECORDS SUMMARY | 2024-09-30 16:43 | XMS_ITS | Encounter Summary ---
Author Organization [facility] Address [address] [place] [address] Care Team Providers Care Groover Runner Name Role Phone Lashell Alfaro MD Primary Care Provider [phone] Encounter Details Date Type Department Care Team (Late Contact Info) Description 06/25/[address] [facility] - Main Lab [address] [place] [address] Pat Mahoney MD [address] [facility] [address] [place] [address] Benign prostatic hyperplasia with lower urinary tract [...] Department Care Team (Late Contact Info) Description 10/07/2024 8:00 AM EDT Office Visit Adult Medicine [facility] [address] [place] [address] Maverick Fleming PA [address] [place], [place] 02/04/2025 8:45 AM EDT Office Visit Adult Medicine [facility] [address] [place] [address] Lashell Alfaro MD [address] [place], [place] documented as of this encounter Procedures Procedure Name Priority Date/Time Associated Diagnosis Comments PROSTATE SPECIFIC ANTIGEN DIAGNOSTIC Routine 06/25/2024 10:26 AM EST Benign prostatic hyperplasia with lower urinary tract symptoms documented in this encounter Results * Prostate specific antigen diagnostic (06/25/2024 10:26 AM EST) PSA 1.73 0.00 - 4.00 ng/mL LAB CHEMISTRY METHOD 06/25/2024 6:41 PM EST [facility] Blood Venous blood specimen / Unknown 06/25/2024 10:26 AM EST 06/25/2024 6:05 PM EST Narrative [facility] - 06/25/2024 6:41 PM EST The Siemens Advia Centaur Chemiluminescent Immunoassay is used. Results obtained with different assay methods or kits cannot be used interchangeably. Results cannot be interpreted as absolute evidence of the presence or absence of malignant disease. us Pat Mahoney MD LAB BLOOD ORDERABLES Fin al Result [facility] [address] [place] [address], documented in this encounter Visit Diagnoses Diagnosis Benign prostatic hyperplasia with lower urinary tract symptoms documented in this encounter Care Teams Groover Runner Relationship Specialty Start Date End Date Lashell Alfaro MD [address] [place] [address] PCP - General Internal Medicine 06/18/20 documented as of this encounter
== END 2024-09-30 14:31 | disposition home or self-care (01) ==
PROVIDERS: PCP Internal Medicine; Visit Provider Physician Assistant
DX: R45.89 Other symptoms and signs involving emotional state (principal)

== ENCOUNTER → 2024-09-30 13:38 | Outpatient (BNVA) | payer MEDICARE, OTHER, SELFPAY | PROVIDERS: PCP Internal Medicine; Visit Provider Physician Assistant | DX: R45.89 Other symptoms and signs involving emotional state (principal) | CPT/HCPCS: 99212 ==